=== PATIENT | male | born 1940 | race Caucasian/White ===

== ENCOUNTER 2024-12-30 13:04 | Inpatient (IN) ==
[2024-12-30] MEDS: 0.9 % SODIUM CHLORIDE 500 ML IV ONE ×2 (13:31→14:39)
[2024-12-30] MEDS: cefTRIAXone 1 GM VIAL IV ONE (13:46)
[2024-12-30 14:26] LABS: Basophils # (Auto) 0.01 K/mcL (0.00-0.30); Basophils % (Auto) 0.1 % (0.0-2.0); Eosinophils # (Auto) 0 K/mcL (0.00-0.70); Eosinophils % (Auto) 0 % (0.0-7.0); Hematocrit 41.2 % (40.1-51.0); Hemoglobin 14.2 g/dL (13.7-17.5); Lymphocytes # (Auto) 0.64 K/mcL (1.50-4.80); Lymphocytes % (Auto) 4.4 % (15.5-49.0); Mean Cell Volume 91.2 fL (80.0-100.0); Mean Corpuscular HGB Conc 34.5 g/dL (31.0-36.0); Mean Platelet Volume 10.5 fL (8.8-12.5); Monocytes # (Auto) 1.04 K/mcL (0.10-0.90); Monocytes % (Auto) 7.1 % (1.0-12.0); Neutrophils % (Auto) 88.1 % (38.0-78.0); Platelet Count 183 K/mcL (140-440); RBC 4.52 M/mcL (4.63-6.08); Red Cell Distribution Width 12.7 % (11.5-14.5); WBC 14.7 K/mcL (4.5-11.0)
[2024-12-30 14:35] LABS: ALT/SGPT 24 U/L (<40); AST/SGOT 24 U/L (<40); Albumin/Globulin Ratio 1.4 (1.0-2.3); Alkaline Phosphatase 65 U/L (39-117); Bilirubin,Total 1.9 mg/dL (0.1-1.0); Blood Urea Nitrogen 16 mg/dL (8-23); Calcium 9.4 mg/dL (8.6-10.4); Carbon Dioxide 22 mmol/L (22-30); Chloride 97 mmol/L (96-108); Globulin 2.8 gm/dL (2.2-3.7); Glomerular Filtration Rate 77; Glucose 199 mg/dL (70-105); Potassium 3.8 mmol/L (3.3-5.1); Sodium 134 mmol/L (133-145)
[2024-12-30 15:08] LABS: Appearance,Urine Clear (Clear); Bilirubin,Urine Negative (Negative); Color,Urine Yellow; Glucose,Urine (UA) 250 mg/dL (Negative); Ketones,Urine Trace mg/dL (Negative); Leukocyte Esterase,Urine Negative /uL (Negative); Mucus,Urine Mod /hpf; Nitrate,Urine Negative (Negative); PH,Urine 5.5 (5.0-9.0); Protein,Urine 30 mg/dL (Negative); Urine Blood Negative ery/mcL (Negative); Urine RBC 5 /hpf (0-3); Urine Squamous Epithelial Cell 1 /hpf (0-4); Urine WBC 4 /hpf (0-4); Urobilinogen,Urine Normal
[2024-12-30] MEDS ORDERED: DEXTROSE 50% 50 ML VIAL IV PRN (17:22)
[2024-12-30] MEDS ORDERED: morphine 4 MG/ML VIAL IV PRN (17:22)
[2024-12-30] MEDS ORDERED: traZODone HCL 50 MG TABLET PO PRN (17:22)
[2024-12-30] MEDS ORDERED: DEXTROSE 31 GM ORAL.SUSP PO PRN (17:22)
[2024-12-30] MEDS ORDERED: ONDANSETRON 4 MG/2 ML VIAL IV PRN (17:22)
[2024-12-30] MEDS ORDERED: IPRATROPIUM/ALBUTEROL 3 ML AMPUL.NEB NEB PRN (17:22)
[2024-12-30] MEDS: cefTRIAXone 1 GM VIAL IV SCH (18:16)
[2024-12-30] MEDS: RIVAROXABAN 20 MG TABLET PO SCH (18:16)
[2024-12-30] MEDS: INSULIN LISPRO 1 UNIT/0.01 ML UNIT SQ SCH (18:16)
[2024-12-30] MEDS: 0.9 % SODIUM CHLORIDE 1,000 ML IV SCH (18:17)
[2024-12-30] MEDS: DOCUSATE SODIUM 100 MG CAPSULE PO SCH (20:42)
[2024-12-30] MEDS: SENNOSIDES 1 TABLET PO SCH (20:43)
[2024-12-30] MEDS: METOPROLOL SUCCINATE 50 MG TAB.XL.24H PO SCH (20:43)
[2024-12-30] MEDS: SIMVASTATIN 20 MG TABLET PO SCH (20:43)
[2024-12-30] MEDS: 0.9 % SODIUM CHLORIDE 10 ML SYRINGE IV SCH (20:43)
[2024-12-30] MEDS ORDERED: DOCUSATE SODIUM 100 MG CAPSULE PO SCH (21:00)
[2024-12-31 07:10] LABS: Basophils # (Auto) 0.01 K/mcL (0.00-0.30); Basophils % (Auto) 0.1 % (0.0-2.0); Eosinophils # (Auto) 0.03 K/mcL (0.00-0.70); Eosinophils % (Auto) 0.3 % (0.0-7.0); Hemoglobin 13.4 g/dL (13.7-17.5); Lymphocytes # (Auto) 1.31 K/mcL (1.50-4.80); Lymphocytes % (Auto) 12.3 % (15.5-49.0); Mean Cell Volume 94.3 fL (80.0-100.0); Mean Corpuscular HGB Conc 33.5 g/dL (31.0-36.0); Mean Platelet Volume 10.7 fL (8.8-12.5); Monocytes # (Auto) 1.02 K/mcL (0.10-0.90); Monocytes % (Auto) 9.6 % (1.0-12.0); Neutrophils % (Auto) 77.4 % (38.0-78.0); Platelet Count 141 K/mcL (140-440); RBC 4.24 M/mcL (4.63-6.08); Red Cell Distribution Width 13.1 % (11.5-14.5); WBC 10.6 K/mcL (4.5-11.0)
[2024-12-31 07:33] LABS: ALT/SGPT 23 U/L (<40); AST/SGOT 33 U/L (<40); Albumin 3.4 gm/dL (3.2-5.2); Albumin/Globulin Ratio 1.3 (1.0-2.3); Alkaline Phosphatase 53 U/L (39-117); Bilirubin,Total 1.2 mg/dL (0.1-1.0); Blood Urea Nitrogen 16 mg/dL (8-23); Calcium 8.6 mg/dL (8.6-10.4); Carbon Dioxide 22 mmol/L (22-30); Chloride 98 mmol/L (96-108); Globulin 2.7 gm/dL (2.2-3.7); Glomerular Filtration Rate 81; Glucose 145 mg/dL (70-105); Potassium 3.4 mmol/L (3.3-5.1); Sodium 132 mmol/L (133-145)
[2024-12-31] MEDS: cefTRIAXone 2 GM in DEXTROSE 5% IN WATER 50 ML IV SCH (09:52)
[2024-12-31] MEDS: LISINOPRIL 20 MG TABLET PO SCH (09:52)
[2024-12-31] MEDS: glipiZIDE 2.5 MG TAB.XL.24H PO SCH (10:04)
[2024-12-31] MEDS ORDERED: diphenhydrAMINE 25 MG CAPSULE PO PRN (11:55)
[2024-12-31] MEDS: LINEZOLID 600 MG TABLET PO SCH (12:15)
[2024-12-31] MEDS: ACETAMINOPHEN 325 MG TABLET PO PRN (22:55)
[2025-01-01] MEDS: oxyCODONE IR 5 MG TABLET PO PRN (01:08)
[2025-01-01 06:58] LABS: ALT/SGPT 58 U/L (<40); AST/SGOT 55 U/L (<40); Albumin 3.9 gm/dL (3.2-5.2); Albumin/Globulin Ratio 1.3 (1.0-2.3); Alkaline Phosphatase 65 U/L (39-117); Bilirubin,Direct 0.6 mg/dL (<0.3); Bilirubin,Total 1.3 mg/dL (0.1-1.0); Blood Urea Nitrogen 17 mg/dL (8-23); Calcium 9.2 mg/dL (8.6-10.4); Carbon Dioxide 25 mmol/L (22-30); Chloride 99 mmol/L (96-108); Globulin 3.1 gm/dL (2.2-3.7); Glomerular Filtration Rate 81; Glucose 172 mg/dL (70-105); Lactate Dehydrogenase 165 U/L (135-225); Phosphorous 2.2 mg/dL (2.5-4.5); Potassium 3.8 mmol/L (3.3-5.1); Sodium 135 mmol/L (133-145); Triglycerides 68 mg/dL (<150); Uric Acid 5.6 mg/dL (2.5-8.0)
[2025-01-01] MEDS: SIMETHICONE 80 MG TAB.CHEW CHEWED ONE (12:50)
[2025-01-01] MEDS: SIMETHICONE 80 MG TAB.CHEW CHEWED SCH (12:50)
[2025-01-03] MEDS ORDERED: LABETALOL HCL 20 MG/4 ML VIAL IV PRN (07:53)
[2025-01-03] MEDS: FUROSEMIDE 40 MG/4 ML VIAL IV ONE (08:35)
[2025-01-03 11:50] VITALS: TEMP 98.1; O2SAT 96
== END 2025-01-03 12:20 | DRG 872 ==
LOC: ED 13:04 → MEDSUR 16:59
PROVIDERS: ADMIT Internal Medicine; ATTEND Internal Medicine